=== PATIENT | female | born 1965 | race Caucasian/White ===

== ENCOUNTER → 2018-01-06 | Day surgery (SDC) | payer OTHER ==
[2017-12-26 07:10] VITALS: Ht 168.9 cm; Wt 63.6 kg
[~2018-01-06] VITALS: Ht 168.9 cm; Wt 63.6 kg
[~2018-01-06] MED LIST: 500ML BSS 0.3ML EPI 1:1000PF IRRIG ONE; ACETAMINOPHEN 325 MG TAB PO PRN; AMVISC PLUS 0.8ML SYRINGE INT OCU ONE; ATROPINE SULFATE 0.1 MG/ML 5ML SYR IV PRN; BRIMONIDINE TART 0.2% OP SOLN PER DROP CHARGE ONE; BSS FLUSH ONE; ENDOCOAT 0.85ML SYRINGE INT OCU ONE; EpHEDrine SULFATE INJ 50 MG/ML AMP IV PRN; EpINEphrine INJ 1MG/ML AMP 1 MG/ML AMP ONE; IBUP-1050 PO; LIDOCAINE 4% OP SOLN DROP CHARGE ONE; LIDOCAINE 4% OP SOLN DROP CHARGE OPR SCH; LIDOCAINE HCL 1% MPF 2 ML VIAL ONE; MIDAZOLAM HCL 1 MG/ML 2ML VIAL ONE; MOXIFLOXACIN OPH SOLN PER DROP CHARGE ONE; MULT-506 PO; POVIDONE-IODINE OP SOLN 30 ML BTL ONE; PROPARACAINE 0.5% OP SOLN PER DROP CHARGE OPR SCH; PROPOFOL IV EMULSION 10 MG/ML 20 ML VIAL ONE; TOBRAMYCIN/DEXAMETHASONE OPH OINT PER APPLN CHARGE ONE
[2018-01-06] MEDS: PHENYLEPHRINE HCL 2.5% OP SOLN PER DROP CHARGE OPR SCH ×2 (09:01→09:06)
[2018-01-06] MEDS: TROPICAMIDE 1% OP SOLN PER DROP CHARGE OPR SCH ×2 (09:02→09:07)
[2018-01-06] MEDS: CYCLOPENTOLATE HCL 1% OP SOLN PER DROP CHARGE OPR SCH ×2 (09:03→09:08)
[2018-01-06] MEDS: KETOROLAC 0.5% OP SOLN PER DROP CHARGE OPR SCH ×2 (09:04→09:09)
[2018-01-06] MEDS: MOXIFLOXACIN OPH SOLN PER DROP CHARGE OPR SCH ×2 (09:05→09:17)
[2018-01-06] MEDS: LACTATED RINGER'S 1000ML 500 ML IV SCH ×2 (09:06→10:38)
--- NOTE | 2018-01-06 09:12 | History & Physical Bridge - SC ---
H&P Re-Evaluation Bridge Note: I have examined the patient, reviewed the History & Physical and in the interval since the performance of the History & Physical I have noted the following changes of clinical significance: No changes noted
--- NOTE | 2018-01-06 10:11 | [facility] Operative Report ---
Operative Report Operative Date Jan 06, 2018. Pre-Operative Diagnosis Right Eye Cataract Post-Operative Diagnosis same Procedure(s) Performed Right Cataract Phacoemulsification With Intraocular Lens Implant Surgeon Dr. Etienne Woods Recovery Collector Surgeon(s) 0 Estimated Blood Loss 0 Findings cataract right eye Specimens none Drains None Anesthesia Type MAC Complication(s) none Disposition no Recovery Room / PACU Indications decreased vision right eye Description of Procedure After informed consent was obtained in the holding area the patient was wheeled back to the operating room where cardiac monitoring leads and oxygen by nasal cannula was administered by Anesthesia. Gentle IV sedation was given, and the patient's right eye was prepped and draped in usual sterile fashion. A wire lid speculum was placed into the right eye and the operating microscope was swung into position. Using 0.12 forceps and a Supersharp blade a paracentesis port was made 2 o'clock hours away from the 9 o'clock position of the patient's right eye. 1% non-preserved Lidocaine was then injected into the anterior chamber for anesthesia. A 2.0 mm keratotome blade was then used to make a shelved clear corneal incision at the 9 o'clock position of the right eye. Amvisc was injected into the anterior chamber and a cystotome and Utrata forceps were used to perform a curvilinear capsulorrhexis. BSS on a hydrodissection cannula was used to hydrodissect the lens nucleus away from the capsular bag. The phacoemulsification handpiece was then used in a stop and chop fashion to remove the lens nucleus. The irrigation and aspiration handpiece was then used to remove the residual cortical material. Amvisc was injected into the capsular bag and anterior chamber and a Bausch [employer] Lomb MX60E 14.0 Diopter intraocular lens was injected into the capsular bag. Irrigation and aspiration handpiece was used to remove the residual viscoelastic material. The wounds were hydrated and noted to be watertight. The wire lid speculum was removed from the eye. Vigamox, Brimonidine, and TobraDex ointment were placed on the eye and it was shielded. It should be noted that EndoCoat was used extensively during the case to protect the cornea endothelium. DISPOSITION: The patient tolerated the procedure well and was wheeled to the post anesthesia care unit in stable condition. I attest to the content of the Intraoperative Record and any orders documented therein. Any exceptions are noted below. I attest to the content of the Intraoperative Record and any orders documented therein. Any exceptions are noted below.
--- NOTE | 2018-01-06 10:12 | Discharge Instructions-SurgCtr ---
Discharge Instructions Date of Service Jan 06, 2018. Visit Reason for Visit: Cataract Right Eye Discharge Discharge Diagnosis / Problem: cataract right eye Discharge Goals Goal(s): Improve function Activity Recommendations Activity Limitations: per Instructions/Follow-up section Lifting Limitations: no more than 5 pounds Anesthesia . Post Anesthesia Instructions: If you have had General Anesthesia or IV Sedation: * Do not drive today. * Resume driving when surgeon permits. * Do not make important decisions or sign legal documents today. * Call surgeon for: 1. Temperature elevations greater than 101 degrees F. 2. Uncontrollable pain. 3. Excessive bleeding. 4. Persistent nausea and vomiting. 5. Medication intolerance (nausea, vomiting or rash). * For nausea and vomiting use only clear liquids such as: tea, soda, bouillon until nausea subsides, then gradually increase diet as tolerated. * If you have any concerns or questions, call your surgeon's office. If physician is unavailable and it is an emergency, call 911 or go to the nearest emergency room. . Instructions / Follow-Up Instructions / Follow-Up ACTIVITY RECOMMENDATIONS: * Light activities * You may walk outside, read, watch television. * Mild irritation and blurred vision are common for the first few days, redness around the white part of the eye is common. MEDICATIONS: Resume previous medications unless instructed otherwise by your surgeon. Eye drops (today and tomorrow): Cipro - one drop in operative eye every 2 hours while awake Prednisolone 1% - one drop in operative eye every 2 hours while awake Ketorolac - one drop in operative eye every 2 hours while awake SPECIAL CARE INSTRUCTIONS: * If any problems or concerns, please call Dr. Woods's office at . * Keep plastic shield taped over eye to sleep at night. * Keep plastic shield taped over eye except to administer eye drops. * Keep plastic shield on until office visit the following day. FOLLOW UP VISIT: Follow-up with Dr. Woods in the [place] office as scheduled. If not already scheduled, please call the office at . Diet Recommendations Home Diet: resume previous diet Procedures Procedures Performed: Right Cataract Phacoemulsification With Intraocular Lens Implant Pending Studies Studies pending at discharge: no Medical Emergencies . Who to Call and When: Medical Emergencies: If at any time you feel your situation is an emergency, please call 911 immediately. . Non-Emergent Contact Non-Emergency issues call your: Edger Tailer . . "Provider Documentation" section prepared by Siddhartha Woods. .
[2018-01-06 10:14] VITALS: TEMP 36.3
--- NOTE | 2018-01-06 11:02 | Anesthesia Progress Nt - [facility] ---
Anesthesia Post Op Note Date & Time Jan 06, 2018 at 11:02 Vital Signs Pain Intensity: 0 Vital Signs Past 12 Hours Date Time Temp Pulse Resp B/P (MAP) Pulse Ox O2 Delivery O2 Flow Rate FiO2 01/06/18 10:14 36.3 92 18 124/89 (101) 98 Room Air 01/06/18 08:54 71 18 149/94 (112) 100 Room Air 148/107 (121) Notes Mental Status: alert / awake / arousable, participated in evaluation Pt Amnestic to Procedure: Yes Nausea / Vomiting: adequately controlled Pain: adequately controlled Airway Patency, RR, SpO2: stable & adequate BP & HR: stable & adequate Hydration State: stable & adequate Anesthetic Complications: no major complications apparent
[2018-01-06 11:20] VITALS: BP 129/78; PULSE 79; O2SAT 100
== END | disposition home or self-care (01) ==
LOC: X.SURG 08:13
PROVIDERS: ATTEND Ophthalmology
DX: H25.11 Age-related nuclear cataract, right eye (principal)

== ENCOUNTER 2025-01-27 12:55 | Observation (INO) ==
--- NOTE | 2025-01-27 13:23 | Emergency Department Note ---
History of Present Illness General Chief complaint: GI Assessment Stated complaint: GI ASSESSMENT Time Seen by Provider: 01/27/25 13:01 History of Present Illness This is a 59-year-old female who presents to the emergency department via private vehicle with complaints of "does not feel right, feeling off". The patient notes that for some time now she has been feeling "shaky in the morning". She notes recent adjustment of levothyroxine now to 88 mcg. The patient notes that she has been seen by her physician multiple times and continues to "not feel right". The patient notes last week she felt "bad". She notes for the past few days she notes that when she eats what she describes as simple carbs she notes that she has to sit down and she does not feel well. The patient notes that she was in [place] earlier today and had to cut her vacation short noting that she continue to feel that she had to drink water and almonds to stay present. She presents for further assessment of her symptoms. No fevers. No diarrhea. Patient does note recent addition of Inderal 10 mg twice daily but notes she has only taken about 2.5 mg, last of which was about 18 hours ago. The patient denies any tobacco use. No drug use. No alcohol use. She denies any recent long trips or long travel. No out of the country travel. Patient denies any pain at this time. She just feels "off". Home Medications Medication Instructions Recorded Confirmed Type levothyroxine 88 mcg tablet 88 mcg PO HS 01/27/25 01/27/25 History propranolol 10 mg tablet 2.5 mg PO BID 01/27/25 01/27/25 History Allergies Allergy/AdvReac Type Severity Reaction Status Date / Time oxaliplatin Allergy Severe Anaphylaxis Unverified 01/27/25 15:00 Past Med/Surg History Problem List (Updated 01/27/25 @ 18:02 by Carlos Singh PA-C) Elevated hemoglobin (Acute) Acute hyponatremia (Acute) Elevated blood pressure reading (Acute) Hypertensive urgency Encounter for pre-operative examination Medical History Migraine OLD HX OF MIGRAINES (NO CURRENT PROBLEMS) Surgical History History of tooth extraction History of cataract surgery RT Social History Smoking Status: Never smoker Do You Dip or Chew Tobacco: No; Hx Alcohol Use: Yes Alcohol type: beer Hx Substance Use: No Preferred Language: French Communication Ability: Effective Equalizer Operator Required: No Beliefs That Will Affect Care: None Current Living Situation: Family Feels Safe at Home: Yes Assistive Devices: Contacts Review of Systems A total of 10 systems reviewed and were otherwise negative Physical Exam Vital Signs Vital Signs - 24 hr 01/27/25 12:58 01/27/25 13:30 01/27/25 13:37 Temperature 36.0 C L Temperature Source Temporal Artery Scan Pulse Rate 95 H 99 H 100 H Pulse Rate from SpO2 Sensor Pulse Rhythm Regular Respiratory Rate 20 23 14 Respiratory Effort / Characteristics Non-Labored Spontaneous Respiratory Depth Normal Respiratory Pattern Regular Blood Pressure 207/128 H 175/109 H Blood Pressure Mean 154 132 Blood Pressure Position Sitting Pulse Oximetry 100 100 Oxygen Delivery Method Room Air Room Air Room Air Sepsis Recent Fever Within 48 Hours No Sepsis New/Unexplained Change in Mental Status No Sepsis Action Taken by Nursing No Action Required 01/27/25 13:59 01/27/25 14:00 01/27/25 14:30 Temperature Temperature Source Pulse Rate 92 H 88 94 H Pulse Rate from SpO2 Sensor 87 95 H Pulse Rhythm Respiratory Rate 22 22 Respiratory Effort / Characteristics Respiratory Depth Respiratory Pattern Blood Pressure 169/122 H 185/120 H Blood Pressure Mean 139 141 Blood Pressure Position Pulse Oximetry 99 95 Oxygen Delivery Method Room Air Sepsis Recent Fever Within 48 Hours Sepsis New/Unexplained Change in Mental Status Sepsis Action Taken by Nursing 01/27/25 15:01 01/27/25 15:30 Temperature Temperature Source Pulse Rate 100 H 104 H Pulse Rate from SpO2 Sensor Pulse Rhythm Respiratory Rate 21 13 Respiratory Effort / Characteristics Respiratory Depth Respiratory Pattern Blood Pressure 177/119 H 157/103 H Blood Pressure Mean 149 128 Blood Pressure Position Pulse Oximetry 96 100 Oxygen Delivery Method Sepsis Recent Fever Within 48 Hours Sepsis New/Unexplained Change in Mental Status Sepsis Action Taken by Nursing VITAL SIGNS - Vital signs and nursing notes were reviewed. Hypertensive, borderline tachycardic, afebrile. GENERAL -59-year-old female appearing her stated age who is in no acute distress. Communicates well with provider and answers questions appropriately. SKIN - Without rashes. No meningeal or petechial rash. HEAD - NC/AT. EYES - PERRL with EOMI bilaterally. Sclera anicteric. EARS - No deformities of external structures noted on gross examination bilaterally. External auditory canals without discharge or otorrhea. Tympanic membranes pearly lanier without retraction or bulging. No fluid or purulent material visualized behind the TM. Handle of malleus, umbo, cone of light, pars tensa/flaccid all easily visualized. NOSE - Midline and without cyanosis. No epistaxis or purulent drainage noted. Septum midline without deviation or septal hematoma noted. MOUTH/OROPHARYNX - Without perioral cyanosis. Buccal mucosa pink and moist and without leukoplakia. Tongue midline with equal elevation of palate bilaterally. No tonsillar hypertrophy, erythema, or exudates noted. Good dentition noted. NECK - Neck with FROM. Supple to palpation. No lymphadenopathy noted. No nuchal rigidity. LUNGS - Chest wall symmetric without accessory muscle use, intercostals retractions, or central cyanosis. Normal vesicular breath sounds CTA B/L. No wheezes, rales, or rhonchi appreciated. CARDIAC - RRR with S1/S2. No murmur, rubs, or gallops appreciated. ABDOMEN - Abdominal contour normal without pulsations or visible masses. BS normoactive all four quadrants. No tenderness, palpable masses, hepatosplenomegaly, or ascites noted. EXTREMITIES - No clubbing or peripheral cyanosis. +5/5 strength noted in UE/LE bilaterally. NEUROLOGIC - Cranial nerves II through XII grossly intact. PSYCH -alert, oriented and pleasant on examination Course Administered Medications Discontinued Medications Sodium Chloride (Nss) 1,000 mls @ 999 mls/hr IV .Q1H1M ONE Stop: 01/27/25 14:59 Last Infusion: 01/27/25 15:19 Dose: Infused Documented By: Admin: 01/27/25 14:04 Dose: 999 mls/hr Documented By: DONNA Medical Decision Making Laboratory Data 01/27/25 13:15 01/27/25 13:15 Lab Results 01/27/25 01/27/25 Range/Units 13:10 13:15 WBC 7.89 (4.8-10.8) K/ul RBC 5.70 H (4.20-5.40) M/uL Hgb 17.8 H (12.0-16.0) g/dl Hct 50.2 H (37.0-47.0) % MCV 88.1 (80.0-100.0) fL MCH 31.2 (25.0-34.0) pg MCHC 35.5 (32.0-36.0) g/dL RDW Std Deviation 41.7 (36.4-46.3) fL RDW Coeff of Ene[place] 13.0 (11.5-14.5) % Plt Count 357 (130-400) K/uL MPV 9.4 (9.4-12.4) fL Immature Gran % (Auto) 0.3 % Neut % (Auto) 78.3 % Lymph % (Auto) 16.6 % [place] % (Auto) 3.5 % Eos % (Auto) 0.3 % Baso % (Auto) 1.0 % Neut # (Auto) 6.18 (1.40-6.50) K/uL Lymph # (Auto) 1.31 (1.20-3.40) K/uL [place] # (Auto) 0.28 (0.11-0.59) K/uL Eos # (Auto) 0.02 (0.00-0.50) K/uL Baso # (Auto) 0.08 (0.00-0.20) K/uL Immature Gran # (Auto) 0.02 (0.01-0.20) K/uL PT 10.6 (9.0-12.0) Seconds INR 1.0 (0.9-1.1) APTT 28 (21-31) Seconds PTT Ratio 1.0 Sodium 132 L (136-145) mmol/L Potassium 3.6 (3.5-5.1) mmol/L Chloride 94 L (98-107) mmol/L Carbon Dioxide 26 (21-32) mmol/L Anion Gap 12 H (3-11) BUN 8 (6-23) mg/dl Creatinine 0.77 (0.6-1.2) mg/dl Est Cr Clr Drug Dosing 69.9 ml/min eGFR 88.81 BUN/Creatinine Ratio 10.4 (10-20) Glucose 115 H (70-99(Fasting)) mg/dl Calcium 10.3 (8.6-10.3) mg/dl Magnesium 2.2 (1.7-2.4) mg/dl Total Bilirubin 1.0 (0.2-1.0) mg/dl AST 27 (13-39) U/L ALT 19 (7-52) U/L Alkaline Phosphatase 83 (34-104) U/L Troponin I High Sens 4.9 (0-14) pg/ml Total Protein 9.9 H (6.0-8.3) gm/dl Albumin 5.4 H (3.4-5.0) gm/dl Globulin 4.5 H (2.5-4.0) gm/dl Albumin/Globulin Ratio 1.2 (0.9-2) Lipase 23 (11-82) U/L Procalcitonin < 0.02 (0-0.5) ng/ml TSH 3.697 (0.300-4.500) uIu/ml Free T4 1.56 (0.61-1.60) ng/dl Urine Color Yellow Urine Appearance Clear (Clear) Urine pH 7.5 (4.5-7.5) Ur Specific [place] 1.003 (1.000-1.030) Urine Protein Negative (Negative) Urine Glucose (UA) Negative (Negative) Urine Ketones Trace H (Negative) Urine Blood Negative (Negative) Urine Nitrite Negative (Negative) Urine Bilirubin Negative (Negative) Urine Urobilinogen Negative (Negative) Ur Leukocyte Esterase Negative (Negative) Urine Comment Lyme Disease Screen Negative (Negative) Imaging Data Radiologist's Impression: Chest X-Ray 01/27/25 13:07 XR chest 1V portable CLINICAL HISTORY: nausea, vomiting COMPARISON STUDY: None FINDINGS: Heart size and pulmonary vasculature are normal. No consolidation or pleural effusion. No pneumothorax. IMPRESSION: No acute findings. ACT 112: Negative or not required by law. Electronically signed by: William Ortiz M.D. 01/27/2025 1:44 PM [facility] Narrative Patient was seen and evaluated as above in room A10. Review was performed of nursing notes and vital signs. I did review pertinent previous visits and patient history. After obtaining a thorough history and physical examination the above work up was performed. Patient presents for the above symptoms. On my assessment she is hypertensive, otherwise clinically well-appearing and nontoxic. No focal neurologic deficits. NIHSS is 0. Options of care were discussed with the patient. IV access was established. Labs were drawn. EKG per my interpretation reveals normal sinus rhythm at a rate of 85 bpm. QTc 430. QRS 82. No ST elevation on this rhythm tracing. A chest x-ray was performed. Per my interpretation this was negative for acute process. Labs here suggest some hemoconcentration noting elevation of RBC, Hgb and HCT. The WBC is normal. Mild hyponatremia 132. Mild elevation of anion gap at 12. Glucose 115. No evidence of kidney or liver failure. Troponin within normal range. Lipase normal. Procalcitonin undetectable. Blood cultures pending. TSH reveals euthyroid state. Urinalysis shows ketones. The patient is clinically dry in appearance. IV fluids ordered. The patient continues to feel unwell. I do believe that further evaluation and management in the inpatient setting is warranted. Case discussed with the hospitalist service, Dr. Grossman. Please refer to further documentation regarding her stay. GCS: 15 In the evaluation and treatment of this patient the following differential diagnoses were entertained: Thyroid storm, Electrolyte disturbance, medication reaction, dehydration, diabetes, among others. Impression & Plan Elevated blood pressure reading, Acute hyponatremia, Elevated hemoglobin Discharge Plan Visit Data Chief Complaint: GI Assessment Stated Complaint: GI ASSESSMENT ED Provider: De Tyler ED Midlevel Provider: Carlos Singh Discharge Problem: Elevated blood pressure reading, Acute hyponatremia, Elevated hemoglobin Patient Disposition: Admitted As Inpatient Condition: Good Discharge Instructions Interventions: ED Discharge Assessment Last Done: 01/27/25 17:35
[2025-01-27 13:34] LABS: Hematocrit (blood only) 50.2 % (37.0-47.0); Hemoglobin 17.8 g/dl (12.0-16.0); Immature Granulocytes # (auto) 0.02 K/uL (0.01-0.20); Immature Granulocytes % (auto) 0.3 %; Mean Corpuscular Hemoglobin 31.2 pg (25.0-34.0); Mean Corpuscular Volume 88.1 fL (80.0-100.0); Platelet Count 357 K/uL (130-400); RDW Standard Deviation 41.7 fL (36.4-46.3); Red Blood Count 5.70 M/uL (4.20-5.40); White Blood Count 7.89 K/ul (4.8-10.8)
[2025-01-27 13:45] LABS: Appearance Urine Clear (Clear); Glucose Urine UA Negative (Negative)
--- NOTE | 2025-01-27 13:45 | XRay Report ---
XR chest 1V portable CLINICAL HISTORY: nausea, vomiting COMPARISON STUDY: None FINDINGS: Heart size and pulmonary vasculature are normal. No consolidation or pleural effusion. No p neumothorax. IMPRESSION: No acute findings. ACT 112: Negative or not required by law. Electronically signed by: William Ortiz M.D. 01/27/2025 1:44 PM
[2025-01-27 13:53] LABS: Alanine Aminotransferase 19.0 U/L (7-52); Albumin Globulin Ratio 1.2 (0.9-2); Alkaline Phosphatase 83.0 U/L (34-104); Anion Gap 12.0 (3-11); Bilirubin,Total 1.0 mg/dl (0.2-1.0); Blood Urea Nitrogen 8.0 mg/dl (6-23); Calcium 10.3 mg/dl (8.6-10.3); Carbon Dioxide 26.0 mmol/L (21-32); Chloride 94.0 mmol/L (98-107); Creatinine Clr Calc Pharmacy 69.9 ml/min; Globulin 4.5 gm/dl (2.5-4.0); Glucose 115.0 mg/dl (70-99(Fasting)); Lipase 23.0 U/L (11-82); Magnesium 2.2 mg/dl (1.7-2.4); Potassium 3.6 mmol/L (3.5-5.1); Sodium 132.0 mmol/L (136-145); Total Protein 9.9 gm/dl (6.0-8.3)
[2025-01-27 13:59] LABS: Procalcitonin < 0.02 ng/ml (0-0.5)
[2025-01-27 14:04] LABS: INR 1.0 (0.9-1.1); Partial Thromboplastin Time 28 Seconds (21-31); Prothrombin Time 10.6 Seconds (9.0-12.0)
[2025-01-27] MEDS: SODIUM CHLORIDE 0.9% 1,000 ML IV ONE (14:04)
[2025-01-27 14:08] LABS: Thyroid Stimulating Hormone 3.697 uIu/ml (0.300-4.500)
[2025-01-27 14:24] LABS: Lyme Screen Rflx Confirmation Negative (Negative)
--- NOTE | 2025-01-27 15:42 | History & Physical Report ---
Date of Service January 27, 2025 Assessment & Plan (1) Hypertensive urgency: Plan 59F with PMH HTN, anxiety, CRC not on chemo or radiation who presents with non specific symptoms and found to be in htn urgency #HTN urgency -BP 177/119 in ED -Supposed to be on propanolol 10 BID which was just started last week but was only taking 2.5 BID -No s/s end organ damage -Severe anxiety might be contributing to her BP Plan Discussed with patient the importance of BP control and the risks of untreated HTN, she has agreed to take propanolol 5mg BID Add hydralazine IV PRN May need additional agent but might be difficult to convince patient to do so Follow BP closely #Anxiety She has significant anxiety but is not on pharmacotherapy at this time She should f/u with her PCP as OP #Elevated Hgb -New finding. she was hiking earlier this week, possibly hemoconcentration -Recheck Hgb in AM -She has an appt with heme-onc on 04/15/25 #Hyponatremia -Mild asymptomatic, acute -Recheck in AM #Hypothyroidism -TSH is normal at 3 but patient requests it be decreased to 1 -Explained this may not be possible and that a TSH of 3 is normal -Will check FT4 -Advised she see an nonprofit manager as OP #Urinary issues -Endorsing urinary issues but denies dysuria polyuria suprapubic or flank pain -UA unrevealing other than trace ketones which could be from ketosis from poor PO intake -Checking A1c to r/o DM History of Present Illness Chief Complaint: Feeling off Primary Care Provider: Brandan Macias MD Ms. Desai is a 59F with PMH including CRC, not currently on chemo, HTN, anxiety who presents to ED for "feeling off". She is a challenging historian. She was in [place] hiking the past few days with her sons and decided to leave early today after not feeling well. difficult to ascertain exactly what her specific complaints are. she endorses non specific abdominal complaints but denies N/V/D abd pain. she endorses difficulty eating simple carbs but wasn't able to further elaborate. she recently switched PCPs and was seen in the office on 01/20. She was started on propanolol 10mg BID but was afraid of the side effects so broke each pill up in quarters and was taking 2.5mg. She is very concerned about her TSH level being 3.6. her synthroid dose was recently increased to 88mcg. She denies f/c cp palp dyspnea cough wheez abd pain dysuria polyuria. she states her urination is off but is urinating 4-5 times per day. In ED, BP elevated, currently 177/119 with HR 100. sinus tachycardia on monitor. Labs significant for Hgb 17.8 which is new compared to Hgb 14.8 03/19/24 Na slightly low at 132 CXR clear Allergies Allergy/AdvReac Type Severity Reaction Status Date / Time oxaliplatin Allergy Severe Anaphylaxis Unverified 01/27/25 15:00 Home Medications Medication Instructions Recorded Confirmed Type levothyroxine 88 mcg tablet 88 mcg PO HS 01/27/25 01/27/25 History propranolol 10 mg tablet 2.5 mg PO BID 01/27/25 01/27/25 History Past Med/Surg History Problem List (Updated 01/27/25 @ 15:55 by Ottoniel Grossman DO) Hypertensive urgency Encounter for pre-operative examination Medical History Migraine OLD HX OF MIGRAINES (NO CURRENT PROBLEMS) Surgical History History of tooth extraction History of cataract surgery RT Social History Smoking Status: Never smoker Do You Dip or Chew Tobacco: No; Hx Alcohol Use: Yes Alcohol type: beer Hx Substance Use: No Preferred Language: Romanian Communication Ability: Effective Consumer Affairs Manager Required: No Beliefs That Will Affect Care: None Current Living Situation: Family Feels Safe at Home: Yes Assistive Devices: Contacts Review of Systems Review of Systems: Constitutional: No Weight Change, No Fever, No Chills, No Night Sweats, No Fatigue, endorses malaise, appetite change ENT/Mouth: No Hearing Changes, No Ear Pain, No Nasal Congestion, No Sinus Pain, No Hoarseness, No sore throat, No Rhinorrhea, No Swallowing Difficulty Eyes: No Eye Pain, No Swelling, No Redness, No Foreign Body, No Discharge, No Vision Changes Cardiovascular: No Chest Pain, No SOB, No PND, No Dyspnea on Exertion, No Orthopnea, No Claudication, No Edema, No Palpitations Respiratory: No Cough, No Sputum, No Wheezing, No Smoke Exposure, No Dyspnea Gastrointestinal: No Nausea, No Vomiting, No Diarrhea, No Constipation, No Pain, No Heartburn, No Anorexia, No Dysphagia, No Hematochezia, No Melena, No Flatulence, No Jaundice Genitourinary: No Dysmenorrhea, No DUB, No Dyspareunia, No Dysuria, No Urinary Frequency, No Hematuria, No Urinary Incontinence, No Urgency, No Flank Pain, No Urinary Flow Changes, No Hesitancy Musculoskeletal: No Arthralgias, No Myalgias, No Joint Swelling, No Joint Stiffness, No Back Pain, No Neck Pain, No Injury History Skin: No Skin Lesions, No Pruritis, No Hair Changes, No Breast/Skin Changes, No Nipple Discharge Neuro: No Weakness, No Numbness, No Paresthesias, No Loss of Consciousness, No Syncope, No Dizziness, No Headache, No Coordination Changes, No Recent Falls Psych: +anxiety Heme/Lymph: No Bruising, No Bleeding, No Transfusions History, No Lymphadenopathy Endocrine: No Polyuria, No Polydipsia, No Temperature Intolerance Physical Exam Physical Exam: Vitals and labs reviewed General: Well appearing, NAD HEENT: EOMI, PERRLA Neck: Supple Cardiac: regular rhythm, tachycardia no rubs gallops or murmurs Lungs: CTA no rhonchi wheezing or rales Abd: S NT ND BS positive : Defferred MSK: Full ROM. No obvious deformities Ext: No Edema cyanosis Skin: Warm, Dry Neuro: AOx3 No focal deficits. Psych: anxious Results & Data Results & Data Vital Signs (Past 12 Hours) Vital Signs Temp Pulse Resp BP Pulse Ox O2 Del Method 01/27/25 15:01 100 H 21 177/119 H 96 01/27/25 14:30 94 H 22 185/120 H 95 Room Air 01/27/25 14:00 88 22 169/122 H 99 01/27/25 13:59 92 H 01/27/25 13:37 100 H 14 100 Room Air 01/27/25 13:30 99 H 23 175/109 H 100 Room Air 01/27/25 12:58 36.0 C L 95 H 20 207/128 H Room Air Laboratory Results Abnormal lab results 01/27/25 01/27/25 Range/Units 13:10 13:15 RBC 5.70 H (4.20-5.40) M/uL Hgb 17.8 H (12.0-16.0) g/dl Hct 50.2 H (37.0-47.0) % Sodium 132 L (136-145) mmol/L Chloride 94 L (98-107) mmol/L Anion Gap 12 H (3-11) Glucose 115 H (70-99(Fasting)) mg/dl Total Protein 9.9 H (6.0-8.3) gm/dl Albumin 5.4 H (3.4-5.0) gm/dl Globulin 4.5 H (2.5-4.0) gm/dl Urine Ketones Trace H (Negative) Diagnostic Findings Chest X-Ray 01/27/25 13:07 XR chest 1V portable CLINICAL HISTORY: nausea, vomiting COMPARISON STUDY: None FINDINGS: Heart size and pulmonary vasculature are normal. No consolidation or pleural effusion. No pneumothorax. IMPRESSION: No acute findings. ACT 112: Negative or not required by law. Electronically signed by: William Ortiz M.D. 01/27/2025 1:44 PM
[2025-01-27] MEDS ORDERED: ONDANSETRON INJ 2 MG/ML 2 ML VIAL IV PRN (17:53)
[2025-01-27] MEDS ORDERED: ACETAMINOPHEN 325 MG TAB PO PRN (17:53)
[2025-01-27 19:43] VITALS: RESP 18
[2025-01-27] MEDS: PROPRANOLOL HCL 10 MG TAB PO SCH (19:47)
[2025-01-27] MEDS: LEVOTHYROXINE SODIUM 88 MCG TABLET PO SCH (19:47)
[2025-01-28 06:46] LABS: Hematocrit (blood only) 41.5 % (37.0-47.0); Hemoglobin 14.8 g/dl (12.0-16.0); Immature Granulocytes # (auto) 0.02 K/uL (0.01-0.20); Immature Granulocytes % (auto) 0.4 %; Mean Corpuscular Hemoglobin 31.6 pg (25.0-34.0); Mean Corpuscular Volume 88.5 fL (80.0-100.0); Platelet Count 246 K/uL (130-400); RDW Standard Deviation 42.4 fL (36.4-46.3); Red Blood Count 4.69 M/uL (4.20-5.40); White Blood Count 5.03 K/ul (4.8-10.8)
[2025-01-28 07:00] LABS: Anion Gap 6.0 (3-11); Blood Urea Nitrogen 8.0 mg/dl (6-23); Calcium 9.3 mg/dl (8.6-10.3); Carbon Dioxide 29.0 mmol/L (21-32); Chloride 104.0 mmol/L (98-107); Creatinine Clr Calc Pharmacy 60.8 ml/min; Glucose 95.0 mg/dl (70-99(Fasting)); Potassium 4.0 mmol/L (3.5-5.1); Sodium 139.0 mmol/L (136-145)
[2025-01-28 07:29] VITALS: BP 119/78; TEMP 98.4; O2SAT 96
[2025-01-28 09:03] LABS: Hemoglobin A1C 5.1 % (4.5-5.6)
--- NOTE | 2025-01-28 10:56 | Discharge Summary ---
Date of Service January 28, 2025 Admission HPI Per Admitting Provider Ms. Desai is a 59F with PMH including CRC, not currently on chemo, HTN, anxiety who presents to ED for "feeling off". She is a challenging historian. She was in [place] hiking the past few days with her sons and decided to leave early today after not feeling well. difficult to ascertain exactly what her specific complaints are. she endorses non specific abdominal complaints but denies N/V/D abd pain. she endorses difficulty eating simple carbs but wasn't able to further elaborate. she recently switched PCPs and was seen in the office on 01/20. She was started on propanolol 10mg BID but was afraid of the side effects so broke each pill up in quarters and was taking 2.5mg. She is very concerned about her TSH level being 3.6. her synthroid dose was recently increased to 88mcg. She denies f/c cp palp dyspnea cough wheez abd pain dysuria polyuria. she states her urination is off but is urinating 4-5 times per day. In ED, BP elevated, currently 177/119 with HR 100. sinus tachycardia on monitor. Labs significant for Hgb 17.8 which is new compared to Hgb 14.8 03/19/24 Na slightly low at 132 CXR clear Admission Exam Per Admitting Provider Vitals and labs reviewed General: Well appearing, NAD HEENT: EOMI, PERRLA Neck: Supple Cardiac: regular rhythm, tachycardia no rubs gallops or murmurs Lungs: CTA no rhonchi wheezing or rales Abd: S NT ND BS positive : Defferred MSK: Full ROM. No obvious deformities Ext: No Edema cyanosis Skin: Warm, Dry Neuro: AOx3 No focal deficits. Psych: anxious Principal Diagnosis HTN urgency Anxiety Discharge Exam General: Well appearing, NAD, +++ inquisitive regarding fluctuations in lab findings. HEENT: EOMI, PERRLA Neck: Supple Cardiac: regular rhythm, tachycardia no rubs gallops or murmurs Lungs: CTA no rhonchi wheezing or rales Abd: S NT ND BS positive : Defferred MSK: Full ROM. No obvious deformities Ext: No Edema cyanosis Skin: Warm, Dry Neuro: AOx3 No focal deficits. Psych: anxious Discharge Data Allergies Allergy/AdvReac Type Severity Reaction Status Date / Time oxaliplatin Allergy Severe Anaphylaxis Unverified 01/27/25 15:00 Consultations 01/27/25 14:51 ED Decision to Admit Stat Hospital Course (1) Hypertensive urgency: Plan Per prior attending w/ addendum: 59F with PMH HTN, anxiety, CRC not on chemo or radiation who presents with non specific symptoms and found to be in htn urgency #HTN urgency -BP 177/119 in ED -Supposed to be on propanolol 10 BID which was just started last week but was only taking 2.5 BID -No s/s end organ damage -Severe anxiety might be contributing to her BP Plan Discussed with patient the importance of BP control and the risks of untreated HTN, she has agreed to take propanolol 5mg BID Add hydralazine IV PRN May need additional agent but might be difficult to convince patient to do so Follow BP closely #Anxiety She has significant anxiety but is not on pharmacotherapy at this time She should f/u with her PCP as OP #Elevated Hgb -New finding. she was hiking earlier this week, possibly hemoconcentration -Recheck Hgb in AM -She has an appt with heme-onc on 04/15/25 #Hyponatremia -Mild asymptomatic, acute -Recheck in AM #Hypothyroidism -TSH is normal at 3 but patient requests it be decreased to 1 -Explained this may not be possible and that a TSH of 3 is normal -Will check FT4 -Advised she see an frame opener as OP #Urinary issues -Endorsing urinary issues but denies dysuria polyuria suprapubic or flank pain -UA unrevealing other than trace ketones which could be from ketosis from poor PO intake -Checking A1c to r/o DM Addendum 01/28/2025: Patient was seen and examined at bedside for follow-up of hypertensive urgency and anxiety. Patient agreeable to take her propranolol at 5 mg twice a day, patient has been advised to measure blood pressure twice a day and maintain a log to take to her primary care physician. We discussed patient's lab findings at bedside and answered all her questions. Patient is hemodynamically stable and blood pressure has been controlled. She is being discharged with following instructions at the point of discharge: Follow-up with your primary care physician within a week time and likely you will need labs CBC/CMP/magnesium/phosphorus. As discussed at the bedside, measure your blood pressure twice a day and maintain a log to take daily to your primary care physician for ongoing evaluation/management of your hypertension. We recommend that you follow-up with your PCP closely for evaluation/management of any underlying anxiety. Follow-up with your primary care physician for your concerns regarding hypothyroidism treatment. Take your medications as prescribed. Please make sure that you are able to get your medications today by calling your pharmacy before you leave the hospital so that your treatment continuity is not broken. Home Health Attestation I certify that this patient is under my care and that I, or a physicians licensed sales assistant working with me, had a face to-face encounter that meets the home health [id number] encounter requirements with this patient. The encounter with the patient was in whole, or in part, for the following medical condition, which is the primary reason for home health care (list medical condition): I certify that, based on my findings, the following services are medically necessary home health services: My clinical findings support the need for the above services because: Further, I certify that my clinical findings support that this patient is homebound (i.e. absences from home require considerable and taxing effort and are for medical reasons or moravian services or infrequently or of short duration when for other reasons) because: Certification for Home Health Services: Based on the above findings, I certify that this patient is confined to the home and needs intermittent detention care, physical therapy and/or speech therapy or continues to need occupational therapy. The patient is under my care, and I have initiated the establishment of the plan of care. This patient will be followed by a physician who will periodically review the plan of care. Total Time Total Time Spent Total Time Spent (In Minutes): 35 Discharge Plan Discharge Items Patient Disposition: Home - Self-Care Reason For Visit: HTN Discharge Diagnosis: HTN urgency Anxiety Condition on Discharge: Good Activity: Resume your previous activity Non-emergency contact: Primary Care Provider Call non-emergency contact if: you have any medication questions Follow-up/Referrals: Brandan Macias MD [Primary Care Provider] - Diet: Heart Healthy Addtl Attending Provider Instructions: Follow-up with your primary care physician within a week time and likely you will need labs CBC/CMP/magnesium/phosphorus. As discussed at the bedside, measure your blood pressure twice a day and maintain a log to take daily to your primary care physician for ongoing evaluation/management of your hypertension. We recommend that you follow-up with your PCP closely for evaluation/management of any underlying anxiety. Follow-up with your primary care physician for your concerns regarding hypothyr oidism treatment. Take your medications as prescribed. Please make sure that you are able to get your medications today by calling your pharmacy before you leave the hospital so that your treatment continuity is not broken. Pending Studies at Discharge: Yes Stand-Alone Forms: My [facility] [employer], Smoking Cessation Medications and DC Order Prescriptions: New propranolol 10 mg Tablet 5 mg PO BID Qty: 30 0RF Continued levothyroxine 88 mcg tablet 88 mcg PO HS Discontinued propranolol 10 mg tablet 2.5 mg PO BID Patient Comments: Per patient, she cuts the tablets into quarters and takes 2.5mgb y mouth twice daily Discharge Orders: Discharge Order (Routine); Ordered 01/28/25 Ordered By: Fannie Lo Admission Data Admit Date/Time: 01/27/25 15:33 Attending Provider: Fannie Lo Admit Provider: Ottoniel Grossman Primary Care Provider: Brandan Macias Other Providers: Ottoniel Grossman
[2025-01-28 11:36] VITALS: PULSE 67
--- NOTE | 2025-01-30 07:37 | Electrocardiogram Report ---
Test Reason : Blood Pressure : */* mmHG Vent. Rate : 85 BPM Atrial Rate : 85 BPM P-R Int : 132 ms QRS Dur : 82 ms QT Int : 362 ms P-R-T Axes : 49 67 56 degrees QTcB Int : 430 ms Normal sinus rhythm Nonspecific ST abnormality Abnormal ECG No previous ECGs available Confirmed by Vinayak Centeno ([id number]) on 01/30/2025 7:37:34 AM Referred By: REFERRED SELF Confirmed By: Vinayak Centeno
== END 2025-01-28 12:00 | disposition home or self-care (01) ==
LOC: ED 12:55 → EDINP 12:55 → SUATTDRO 15:33 → 2S 17:35